=== PATIENT | female | born 1945 | race Caucasian/White ===

== ENCOUNTER 2020-10-21 16:41 | Emergency (ER) | payer MEDICARE ==
--- NOTE | 2020-10-21 16:49 | EDM.PDOC ---
ED HPI GENERAL MEDICAL PROBLEM - General Chief Complaint: Lower Extremity Injury/Pain Stated Complaint: RT FOOT PAIN Time Seen by Provider: 10/21/20 16:42 Source of Information: Reports: Patient History Limitations: Reports: No Limitations - History of Present Illness INITIAL COMMENTS - FREE TEXT/NARRATIVE: 75F PMHx CKD presents for atraumatic R foot pain. She states the pain started off in the foot as "tremors" and has progressed to include the right knee. She has been using a cane for stability. She rates pain a 2/10. She is more concerned with the lack of stability in the knee and ankle than the pain. She notes CKD and was on allopurinol for uremia but is no longer. She has a primary care physician that follows her renal function. She was also recently diagnosed with leukemia but has not yet started treatment. Right ankle Pain Score (Numeric/FACES): 2 - Related Data Allergies Allergy/AdvReac Type Severity Reaction Status Date / Time Latex, Natural Rubber Allergy Itching Verified 02/15/15 11:23 Penicillins Allergy Itching Verified 02/15/15 11:23 Sulfa (Sulfonamide Allergy Itching Verified 02/15/15 11:23 Antibiotics) Tetanus Vaccines and Toxoid Allergy Other Verified 02/15/15 11:23 [Tetanus Vaccines & Toxoid] Home Meds: Home Meds Allopurinol [Zyloprim] 100 mg PO BID 02/15/15 [History] Furosemide [Lasix] 20 mg PO DAILY 02/15/15 [History] Metoprolol Tartrate 100 mg PO BID 02/15/15 [History] amLODIPine [Norvasc] 7.5 mg PO DAILY 02/15/15 [History] Levofloxacin [Levaquin] 250 mg PO Q48H #4 tablet 02/16/15 [Rx] Past Medical History Other Genitourinary History: Has left arm fistula in case needs dialysis,going for repair of fistula Wednesday in [place]. Other Musculoskeletal History: left arm Other Hematologic History: takes PO B12 daily and. Vit D Other Oncologic History: right ovary removed. Other Dermatologic History: states has been itching badlly for 2 to 3 weeks. Review of Systems - Review of Systems Review Of Systems: Comprehensive ROS is negative, except as noted in HPI. ED EXAM, GENERAL - Physical Exam Exam: See Below Exam Limited By: No Limitations General Appearance: Alert, WD/WN, No Apparent Distress Throat/Mouth: Normal Voice, No Airway Compromise Head: Atraumatic, Normocephalic Neck: Normal Inspection Respiratory/Chest: No Respiratory Distress, Lungs Clear, Normal Breath Sounds, No Accessory Muscle Use Cardiovascular: Normal Peripheral Pulses, Regular Rate, Rhythm Extremities: Normal Inspection, Other (no calf swelling,erythema,warmth. ) Neurological: Alert, Normal Gait Psychiatric: Normal Affect, Normal Mood Skin Exam: Warm, Dry, Intact, Normal Color Course - Vital Signs Last Recorded V/S: Last Vital Signs Temp 97.6 F 10/21/20 17:02 Pulse 87 10/21/20 17:56 Resp 18 10/21/20 17:56 BP 138/66 10/21/20 17:56 Pulse Ox 96 10/21/20 17:56 - Orders/Labs/Meds Orders: Active Orders 24 hr Category Date Time Status Foot Comp Min 3V Rt [CR] Stat Exams 10/21/20 16:54 Taken Labs: Laboratory Tests 10/21/20 10/21/20 Range/Units 17:10 17:10 WBC 18.50 H (4.0-11.0) K/uL RBC 4.32 (4.30-5.90) M/uL Hgb 13.6 (12.0-16.0) g/dL Hct 41.1 (36.0-46.0) % MCV 95.1 (80.0-98.0) fL MCH 31.5 (27.0-32.0) pg MCHC 33.1 (31.0-37.0) g/dL RDW Std Deviation 51.9 (28.0-62.0) fl RDW Coeff of Garret 15 (11.0-15.0) % Plt Count 783 H (150-400) K/uL MPV 10.80 (7.40-12.00) fL Neut % (Auto) 81.8 H (48.0-80.0) % Lymph % (Auto) 7.1 L (16.0-40.0) % [place] % (Auto) 7.1 (0.0-15.0) % Eos % (Auto) 3.2 (0.0-7.0) % Baso % (Auto) 0.8 (0.0-1.5) % Neut # (Auto) 15.1 H (1.4-5.7) K/uL Lymph # (Auto) 1.3 (0.6-2.4) K/uL [place] # (Auto) 1.3 H (0.0-0.8) K/uL Eos # (Auto) 0.6 (0.0-0.7) K/uL Baso # (Auto) 0.2 H (0.0-0.1) K/uL Nucleated RBC % 0.0 /100WBC Nucleated RBCs # 0 K/uL Sodium 135 L (136-145) mmol/L Potassium 4.1 (3.5-5.1) mmol/L Chloride 97 L (98-107) mmol/L Carbon Dioxide 15.9 L (21.0-32.0) mmol/L BUN 81 H (7.0-18.0) mg/dL Creatinine 4.3 H (0.6-1.0) mg/dL Est Cr Clr Drug Dosing 9.06 mL/min Estimated GFR (MDRD) 10.0 ml/min Glucose 106 (74-106) mg/dL Calcium 10.1 (8.5-10.1) mg/dL Magnesium 2.5 H (1.8-2.4) mg/dL Meds: Medications Discontinued Medications Generic Name Dose Route Start Last Admin Trade Name Freq PRN Reason Stop Dose Admin Acetaminophen 1,000 mg 10/21/20 16:57 10/21/20 17:52 Tylenol Extra Strength PO 10/21/20 16:58 1,000 mg ONETIME ONE Administration Cyclobenzaprine HCl 5 mg 10/21/20 16:57 10/21/20 17:53 Flexeril PO 10/21/20 16:58 5 mg NOW STA Administration - Re-Assessments/Exams Free Text/Narrative Re-Assessment/Exam: 10/21/20 17:00 Will check basic labs, electrolytes. Will get imaging to assess for arthritis vs other. Will treat pain with tylenol/flexeril. 10/21/20 17:59 Patient with multiple lab abnormalities including elevated white blood cell count, thrombocytosis, elevated creatinine, normal potassium, hypomagnesemia. Although these lab results are concerning considering patient's leukemia history, there are no emergent findings that necessitate admission to the hospital. Patient and daughter were talked to extensively about the importance of follow-up with oncology. Patient's pain is likely secondary to her underlying leukemia. Although she does have chronic kidney disease, her creatinine is stable from last check in our computer system 6 years ago. Daughter also notes that 4.1 is a typical reading for patient's creatinine. No hyperkalemia to suggest acute kidney injury. Departure - Departure Time of Disposition: 18:01 Disposition: Home, Self-Care 01 Condition: Good Clinical Impression: Bone pain - Discharge Information Instructions: Muscle Strain, [id number] Referrals: Raghu Zavala MD [Primary Care Provider] - Forms: ED Department Discharge Additional Instructions: You need to follow-up with your oncologist regarding your abnormal lab results. I believe your pain is likely secondary to your underlying leukemia. You may need to be on chronic pain medication in order to alleviate the symptoms. In the meantime you can try Tylenol 1000 mg up to 4 times a day. The following information is given to patients seen in the emergency department who are being discharged to home. This information is to outline your options for follow-up care. We provide all patients seen in our emergency department with a follow-up referral. The need for follow-up, as well as the timing and circumstances, are variable depending upon the specifics of your emergency department visit. If you don't have a primary care physician on staff, we will provide you with a referral. We always advise you to contact your personal physician following an emergency department visit to inform them of the circumstance of the visit and for follow-up with them and/or the need for any referrals to a consulting specialist. The emergency department will also refer you to a specialist when appropriate. This referral assures that you have the opportunity for follow-up care with a specialist. All of these measure are taken in an effort to provide you with optimal care, which includes your follow-up. Under all circumstances we always encourage you to contact your private physician who remains a resource for coordinating your care. When calling for follow-up care, please make the office aware that this follow-up is from your recent emergency room visit. If for any reason you are refused follow-up, please contact the [facility] Emergency Department at and asked to speak to the emergency department charge nurse. Please follow up with your primary care physician. If you do not have a primary care physician, see below: [facility] [address] [place], [place] [id number] [facility] [address] [place] [address] [facility] [address] [place] [address] Sepsis Event Note (ED) - Focused Exam Vital Signs: Vital Signs Temp Pulse Resp BP Pulse Ox 10/21/20 17:56 87 18 138/66 96 10/21/20 17:25 84 17 120/64 96 10/21/20 17:02 97.6 F 94 17 113/61 98 - My Orders Last 24 Hours: My Active Orders 10/21/20 16:54 Foot Comp Min 3V Rt [CR] Stat - Assessment/Plan Last 24 Hours: My Active Orders 10/21/20 16:54 Foot Comp Min 3V Rt [CR] Stat
[2020-10-21] MEDS ORDERED: Cyclobenzaprine 5 MG Tab PO STA (16:57)
[2020-10-21] MEDS ORDERED: Acetaminophen 500 MG Tab PO ONE (16:57)
[2020-10-21 17:36] LABS: CARBON DIOXIDE,CO2 15.9 mmol/L (21.0-32.0); POTASSIUM,K 4.1 mmol/L (3.5-5.1)
--- NOTE | 2020-10-21 17:57 | CR ---
INDICATION: Atraumatic pain TECHNIQUE: Three views right knee COMPARISON: None FINDINGS: Bones: Alignment is normal. No fractures or bone lesions. Joint spaces: Degenerative changes medial patellofemoral compartment. Soft tissues: Unremarkable. IMPRESSION: Degenerative changes medial patellofemoral compartment Dictated by Isai Vallecillo MD @ Oct 21 2020 5:54PM Signed by Dr. Isai Vallecillo @ Oct 21 2020 5:55PM
[2020-10-21 17:59] VITALS: BP 138/66
--- NOTE | 2020-10-21 17:59 | CR ---
INDICATION: Atraumatic pain x weeks. TECHNIQUE: Right ankle 3 views. COMPARISON: None. FINDINGS: Bones: Alignment is normal. No fractures or bone lesions. Joint spaces: Unremarkable. Soft tissues: Unremarkable. IMPRESSION: Unremarkable right ankle. Dictated by: Isai Vallecillo MD @ 10/21/2020 17:58:42 (Electronically Signed)
--- NOTE | 2020-10-21 17:59 | CR ---
INDICATION: Atraumatic pain x weeks. TECHNIQUE: Right foot 3 views COMPARISON: None. FINDINGS: Bones: Alignment is normal. No fractures or bone lesions. Joint spaces: Unremarkable. Soft tissues: Unremarkable. IMPRESSION: Unremarkable right foot. Dictated by: Isai Vallecillo MD @ 10/21/2020 17:59:19 (Electronically Signed)
[2020-10-21 18:22] VITALS: PULSE 84
== END 2020-10-21 18:22 | disposition home or self-care (01) ==
LOC: MW.ED 16:41
DX: M89.8X7 Other specified disorders of bone, ankle and foot (principal); Z91.040 Latex allergy status; Z88.0 Allergy status to penicillin; Z88.2 Allergy status to sulfonamides; Z88.7 Allergy status to serum and vaccine; Z79.899 Other long term (current) drug therapy
CPT/HCPCS: 36415; 73562; 73610; 73630; 80048; 83735; 85025; 99283; A9270

== ENCOUNTER 2020-10-31 23:40 | Emergency (ER) | payer MEDICARE ==
--- NOTE | 2020-11-01 00:21 | EDM.PDOC ---
ED HPI GENERAL MEDICAL PROBLEM - General Chief Complaint: ENT Problem Stated Complaint: NOSE BLEED Time Seen by Provider: 10/31/20 23:50 - History of Present Illness INITIAL COMMENTS - FREE TEXT/NARRATIVE: HISTORY AND PHYSICAL: History of present illness: Is a 75-year-old female who is currently being worked up at the cancer center for an elevated WBC count as well as a thrombocytosis and was seen yesterday by their oncologist and is currently being evaluated who presents ER today with epistaxis that started approximately 1 hour prior to arrival. Patient reports that she has had no prior episodes of epistaxis similar to this in the past. Patient has any recent fevers, shakes, chills, nausea, vomiting, diarrhea, dysuria, frequency, urgency, chest pain, shortness of breath. Patient reports that she is not on any anticoagulant medications or aspirin. Patient reports that the only thing she is taking currently is acetaminophen for pain or discomfort. Patient denies any easy bruising or bleeding gums. Patient denies any history of DVT/PE. Patient denies any bleeding dyscrasias in the past. family reports the patient has still undiagnosed blood disorder that is being worked up. Patient has any recent trauma to her nose. Review of systems: As per history of present illness and below otherwise all systems reviewed and negative. Past medical history: As per history of present illness and as reviewed below otherwise noncontributory. Surgical history: As per history of present illness and as reviewed below otherwise noncontributory. Social history: No reported history of drug or alcohol abuse. Family history: As per history of present illness and as reviewed below otherwise noncontributory. Physical exam: This patient was seen and evaluated during the 2019 SARS-CoV-2 novel coronavirus pandemic period. Community viral transmission is ongoing at time of this encounter and the emergency department is operating under pandemic response procedures. Constitutional: Patient is oriented to person, place, and time. Appears well- developed and well-nourished. No distress. HEENT: Moist mucous membranes Head: Normocephalic and atraumatic Eyes: Right eye exhibits no discharge. Left eye exhibits no discharge. No scleral icterus Neck: Normal range of motion. No tracheal deviation present. Cardiovascular: Normal rate and regular rhythm. Pulmonary: Effort normal, no respiratory distress. Abdominal: No distention Musculoskeletal: Normal range of motion Neurologic: Alert and oriented to person, place and time. Skin: [place], warm and dry. Psychiatric: Normal mood and affect. Behavior is normal. Judgment and thought content normal. Nursing note and vital signs have been reviewed Patient's ER physical exam is significant for dried blood inside her left naris. No active bleeding at the time except for small amount of blood dripping out of her left naris. No evidence of trauma. Skin shows no petechiae or bruising. Nares were examined. Right nares are normal. Left nares have dried blood that was removed by patient blowing her nose. I was able to examine the nasal mucosa and no active bleeding vessel or clot was identified. Diagnostics: Patient had a CBC which revealed an elevated WBC count and platelet count which appears to be at baseline. Patient does have a history of renal dysfunction with a creatinine in the low 4 range. Patient's labs are within normal limits. Patient's creatinine is at baseline. Patient PT PTT are within normal limits. Therapeutics: Nasal balloon placed inside left nares and inflated with 2 cc of air. Patient tolerated procedure well Assessment and plan: 75-year-old female who is currently being evaluated for a blood dyscrasia who presents ER today secondary to epistaxis that started 1 hour prior to arrival. Patient's evaluation revealed minimal amount of bleeding at the time of arrival to the ED out of her left naris. I did try to interrogate her nares, patient did blow her nose but no active bleeding was initiated. Given her elevated platelet count and concern that she might have dysfunctional platelets, a nasal balloon was inserted and insufflated to obtain adequate pressure. Patient be discharged home with instructions to have the balloon removed in 2 to 3 days. Patient was placed on Keflex 500 mg twice a day to prevent sinus infection. Patient was encouraged to call her doctor to make an appointment to see him or return to the ER if unable to get an appointment. Reassessment at the time of disposition demonstrates that the patient is in no acute distress. The patient has remained stable throughout the entire ED visit and is without objective evidence for acute process requiring urgent intervention or hospitalization. The patient is stable for discharge, counseling is provided as documented above, discussed symptomatic treatment and specific conditions for return. I have spoken with the patient/caregiver and discussed todays findings, in addition to providing specific details for the plan of care. Questions are answered and there is agreement with the plan. Definitive disposition and diagnosis as appropriate pending reevaluation and review of above. - Related Data Allergies Allergy/AdvReac Type Severity Reaction Status Date / Time Latex, Natural Rubber Allergy Itching Verified 10/31/20 23:47 oxycodone Allergy Itching Verified 10/31/20 23:47 Penicillins Allergy Itching Verified 10/31/20 23:47 Sulfa (Sulfonamide Allergy Itching Verified 10/31/20 23:47 Antibiotics) Tetanus Vaccines and Toxoid Allergy Other Verified 10/31/20 23:47 [Tetanus Vaccines & Toxoid] Home Meds: Home Meds Allopurinol [Zyloprim] 100 mg PO BID 02/15/15 [History] Furosemide [Lasix] 20 mg PO DAILY 02/15/15 [History] Metoprolol Tartrate 100 mg PO BID 02/15/15 [History] amLODIPine [Norvasc] 7.5 mg PO DAILY 02/15/15 [History] Cyclobenzaprine [Flexeril] 5 mg PO Q6H PRN #30 tab 10/21/20 [Rx] cephALEXin [Keflex] 500 mg PO BID #6 cap 11/01/20 [Rx] Past Medical History Cardiovascular History: Reports: Hypertension Respiratory History: Reports: COPD Genitourinary History: Reports: Acute Renal Failure Other Genitourinary History: Has left arm fistula in case needs dialysis,going for repair of fistula Wednesday in [place]. Other Musculoskeletal History: left arm Other Hematologic History: takes PO B12 daily and. Vit D Oncologic (Cancer) History: Reports: Leukemia Other Oncologic History: right ovary removed. Other Dermatologic History: states has been itching badlly for 2 to 3 weeks. - Infectious Disease History Infectious Disease History: Reports: Chicken Pox, Measles, Mumps - Past Surgical History Female Surgical History: Reports: Hysterectomy Social & Family History - Family History Family Medical History: No Pertinent Family History - Tobacco Use Tobacco Use Status *Q: Current Every Day Tobacco User Years of Tobacco use: 35 Packs/Tins Daily: 1 - Recreational Drug Use Recreational Drug Use: No ED ROS GENERAL - Review of Systems Review Of Systems: See Below ED EXAM, GENERAL - Physical Exam Exam: See Below Course - Vital Signs Last Recorded V/S: Last Vital Signs Temp 98.3 F 10/31/20 23:48 Pulse Resp 18 10/31/20 23:48 BP 111/56 L 10/31/20 23:48 Pulse Ox - Orders/Labs/Meds Labs: Laboratory Tests 11/01/20 11/01/20 11/01/20 Range/Units 00:16 00:16 00:16 WBC 19.39 H (4.0-11.0) K/uL RBC 3.76 L (4.30-5.90) M/uL Hgb 11.7 L (12.0-16.0) g/dL Hct 35.5 L (36.0-46.0) % MCV 94.4 (80.0-98.0) fL MCH 31.1 (27.0-32.0) pg MCHC 33.0 (31.0-37.0) g/dL RDW Std Deviation 53.5 (28.0-62.0) fl RDW Coeff of Garret 16 H (11.0-15.0) % Plt Count 625 H (150-400) K/uL MPV 10.00 (7.40-12.00) fL Neut % (Auto) 84.5 H (48.0-80.0) % Lymph % (Auto) 3.6 L (16.0-40.0) % [place] % (Auto) 8.2 (0.0-15.0) % Eos % (Auto) 3.5 (0.0-7.0) % Baso % (Auto) 0.2 (0.0-1.5) % Neut # (Auto) 16.4 H (1.4-5.7) K/uL Lymph # (Auto) 0.7 (0.6-2.4) K/uL [place] # (Auto) 1.6 H (0.0-0.8) K/uL Eos # (Auto) 0.7 (0.0-0.7) K/uL Baso # (Auto) 0.0 (0.0-0.1) K/uL Nucleated RBC % 0.0 /100WBC Nucleated RBCs # 0 K/uL INR APTT 28.8 (18.6-31.3) SEC Sodium 132 L (136-145) mmol/L Potassium 3.9 (3.5-5.1) mmol/L Chloride 98 (98-107) mmol/L Carbon Dioxide 22.0 (21.0-32.0) mmol/L BUN 71 H (7.0-18.0) mg/dL Creatinine 3.4 H (0.6-1.0) mg/dL Est Cr Clr Drug Dosing 10.91 mL/min Estimated GFR (MDRD) 13.1 ml/min Glucose 88 (74-106) mg/dL Calcium 8.8 (8.5-10.1) mg/dL Total Bilirubin 0.2 (0.2-1.0) mg/dL AST 24 (15-37) IU/L ALT 18 (14-63) IU/L Alkaline Phosphatase 83 (46-116) U/L Total Protein 6.6 (6.4-8.2) g/dL Albumin 2.6 L (3.4-5.0) g/dL Globulin 4.0 (2.6-4.0) g/dL Albumin/Globulin Ratio 0.7 L (0.9-1.6) 11/01/20 Range/Units 00:16 WBC (4.0-11.0) K/uL RBC (4.30-5.90) M/uL Hgb (12.0-16.0) g/dL Hct (36.0-46.0) % MCV (80.0-98.0) fL MCH (27.0-32.0) pg MCHC (31.0-37.0) g/dL RDW Std Deviation (28.0-62.0) fl RDW Coeff of Garret (11.0-15.0) % Plt Count (150-400) K/uL MPV (7.40-12.00) fL Neut % (Auto) (48.0-80.0) % Lymph % (Auto) (16.0-40.0) % [place] % (Auto) (0.0-15.0) % Eos % (Auto) (0.0-7.0) % Baso % (Auto) (0.0-1.5) % Neut # (Auto) (1.4-5.7) K/uL Lymph # (Auto) (0.6-2.4) K/uL [place] # (Auto) (0.0-0.8) K/uL Eos # (Auto) (0.0-0.7) K/uL Baso # (Auto) (0.0-0.1) K/uL Nucleated RBC % /100WBC Nucleated RBCs # K/uL INR 1.02 APTT (18.6-31.3) SEC Sodium (136-145) mmol/L Potassium (3.5-5.1) mmol/L Chloride (98-107) mmol/L Carbon Dioxide (21.0-32.0) mmol/L BUN (7.0-18.0) mg/dL Creatinine (0.6-1.0) mg/dL Est Cr Clr Drug Dosing mL/min Estimated GFR (MDRD) ml/min Glucose (74-106) mg/dL Calcium (8.5-10.1) mg/dL Total Bilirubin (0.2-1.0) mg/dL AST (15-37) IU/L ALT (14-63) IU/L Alkaline Phosphatase (46-116) U/L Total Protein (6.4-8.2) g/dL Albumin (3.4-5.0) g/dL Globulin (2.6-4.0) g/dL Albumin/Globulin Ratio (0.9-1.6) Departure - Departure Time of Disposition: 00:57 Disposition: Home, Self-Care 01 Condition: Good Clinical Impression: Epistaxis, Thrombocytosis Leukocytosis Qualifiers: Leukocytosis type: other Qualified Code(s): D72.828 - Other elevated white blood cell count Chronic renal failure Qualifiers: Chronic kidney disease stage: unspecified stage Qualified Code(s): N18.9 - Chronic kidney disease, unspecified - Discharge Information Instructions: Nosebleed, Adult Referrals: Raghu Zavala MD [Primary Care Provider] - Forms: ED Department Discharge Additional Instructions: You have been seen and evaluated in the ER today secondary to bleeding of your left nare. Your blood tests are all at baseline without any evidence of significant blood loss. Please continue following up with your oncologist so they can determine the cause of your abnormal WBC count and platelet count. A nasal balloon was inserted into your left naris and should stay there for 2 to 3 days. You will be started on Keflex 500 mg twice a day for 3 days to prevent sinus infections from developing. Please make an appointment to see your doctor or return here to the ER in 2 to 3 days to have the packing removed. The following information is given to patients seen in the emergency department who are being discharged to home. This information is to outline your options for follow-up care. We provide all patients seen in our emergency department with a follow-up referral. The need for follow-up, as well as the timing and circumstances, are variable depending upon the specifics of your emergency department visit. If you don't have a primary care physician on staff, we will provide you with a referral. We always advise you to contact your personal physician following an emergency department visit to inform them of the circumstance of the visit and for follow-up with them and/or the need for any referrals to a consulting specialist. The emergency department will also refer you to a specialist when appropriate. This referral assures that you have the opportunity for follow-up care with a specialist. All of these measure are taken in an effort to provide you with optimal care, which includes your follow-up. Under all circumstances we always encourage you to contact your private physician who remains a resource for coordinating your care. When calling for follow-up care, please make the office aware that this follow-up is from your recent emergency room visit. If for any reason you are refused follow-up, please contact the [facility] Emergency Department at and asked to speak to the emergency department charge nurse. [facility] [address] [place] [address] [id number] [address] [address] Sepsis Event Note (ED) - Evaluation Sepsis Screening Result: No Definite Risk - Focused Exam Vital Signs: Vital Signs Temp Resp BP 10/31/20 23:48 98.3 F 18 111/56 L
[2020-11-01 00:42] LABS: POTASSIUM,K 3.9 mmol/L (3.5-5.1)
[2020-11-01] MEDS ORDERED: Cephalexin 500 MG Cap PO ONE (00:59)
[2020-11-01 01:11] VITALS: BP 125/65; PULSE 102
== END 2020-11-01 01:12 | disposition home or self-care (01) ==
LOC: MW.ED 23:40
DX: D72.828 Other elevated white blood cell count (principal); R04.0 Epistaxis; D47.3 Essential (hemorrhagic) thrombocythemia; I12.9 Hypertensive chronic kidney disease with stage 1 through stage 4 chronic kidney disease, or unspecified chronic kidney disease; N18.9 Chronic kidney disease, unspecified; J44.9 Chronic obstructive pulmonary disease, unspecified; Z91.040 Latex allergy status; Z88.5 Allergy status to narcotic agent; Z88.2 Allergy status to sulfonamides; Z88.7 Allergy status to serum and vaccine; Z79.899 Other long term (current) drug therapy; Z72.0 Tobacco use; Z88.0 Allergy status to penicillin
CPT/HCPCS: 30903; 36415; 80053; 85025; 85610; 85730; 99283; A9270; 30901

== ENCOUNTER 2021-03-26 18:39 | Emergency (ER) | payer MEDICARE ==
--- NOTE | 2021-03-26 18:54 | PCM.EKG ---
#1 Interpretation EKG Date: 03/26/21 Time: 18:50 Rhythm: Other (sinus tachy) Rate (Beats/Min): 105 ST-T: Normal
[2021-03-26] MEDS ORDERED: Sodium Chloride 0.9% 2.5 ML Syringe FLUSH PRN (19:11)
[2021-03-26] MEDS ORDERED: Sodium Chloride 0.9% 10 ML Syringe FLUSH PRN (19:11)
[2021-03-26] MEDS ORDERED: Labetalol 100 MG/20 ML MDV IVPUSH ONE (19:13)
[2021-03-26 19:34] LABS: CARBON DIOXIDE,CO2 23.9 mmol/L (21.0-32.0)
--- NOTE | 2021-03-26 19:46 | CR ---
Indication: Hypertension Comparison: Two-view chest February 12, 2021 Technique: Single AP view chest Findings: There is hyperinflation and chronic interstitial change. There is mild pulmonary vascular congestion. There is no dense consolidation, effusion or pneumothorax. The cardiac silhouette is stable. The bony thorax is grossly intact. Impression: Hyperinflation and chronic interstitial changes with mild pulmonary vascular congestion. Dictated by Clovis Brown MD @ 03/26/2021 7:45:[address] Clovis Brown @ Mar 26 2021 7:45PM
[2021-03-26 21:19] VITALS: BP 135/70; PULSE 98
--- NOTE | 2021-03-26 21:19 | EDM.PDOC ---
ED HPI GENERAL MEDICAL PROBLEM - General Chief Complaint: General Stated Complaint: HOME HEALTH REFERRAL Time Seen by Provider: 03/26/21 19:05 - History of Present Illness INITIAL COMMENTS - FREE TEXT/NARRATIVE: HISTORY AND PHYSICAL: History of present illness: This is a 76-year-old female with a history significant for hypertension, chronic renal failure not yet requiring dialysis, hypertension, peripheral artery disease on Plavix, who presents ER today secondary to a elevated blood pressure was noted by the home health nurse. Patient ports that she has a headache but is not unusual for her and she usually gets 1 when she does not drink her coffee. Patient reports that recently her doctor cut her antihypertensive medication, metoprolol from 1 pill twice a day to half a pill twice a day and her blood pressures been elevated since. Patient denies any other symptomatology. Patient has any recent fevers, shakes, chills, nausea, vomiting, diarrhea, dysuria, frequency, urgency, chest pain, shortness of breath, abdominal pain, double vision, blurred vision. Review of systems: As per history of present illness and below otherwise all systems reviewed and negative. Past medical history: As per history of present illness and as reviewed below otherwise noncontributory. Surgical history: As per history of present illness and as reviewed below otherwise noncontributory. Social history: No reported history of drug abuse. Family history: As per history of present illness and as reviewed below otherwise noncontributory. Physical exam: HEENT: Atraumatic, normocephalic, pupils reactive, negative for conjunctival pallor or scleral icterus, mucous membranes moist, throat clear, neck supple, nontender, trachea midline. Lungs: Clear to auscultation, breath sounds equal bilaterally, chest nontender. Heart: S1S2, regular, negative for clicks, rubs, or JVD. Abdomen: Soft, nondistended, nontender. Negative for masses or hepatosplenomegaly. Negative for costovertebral tenderness. Pelvis: Stable nontender. Genitourinary: Deferred. Rectal: Deferred. Extremities: Atraumatic, negative for cords or calf pain. Neurovascular unremarkable. Neuro: Awake, alert, oriented. Cranial nerves II through XII unremarkable. Cerebellum unremarkable. Motor and sensory unremarkable throughout. Exam nonfocal. Diagnostics: CBC, CMP all patient's baseline Chest Xray: Normal cardiac silhouette No infiltrates or effusions identified. No PTX No evidence of acute bony fracture. As interpreted by ER MD: Colton EKG: As interpreted by ER physician: Colton: Nonspecific ST-T wave abnormalities Normal axis No evidence of ST elevation KS Normal sinus rhythm heart rate of 105 Therapeutics: Labetalol 20 mg IV Assessment and plan: 76-year-old female with a history significant for hypertension who presents ER today secondary to elevated BP. Patient's physical exam is unremarkable as well the review of systems. Patient appears to be asymptomatic. Patient's antihypertensive medications were cut in half approximately 1 to 2 weeks ago and ever since then her blood pressure has been elevated. I have instructed the patient to restart her prior dose of her metoprolol and take a full tablet twice a day instead of half a tablet twice a day and follow-up with her doctor for reevaluation of her hypertension. Reassessment at the time of disposition demonstrates that the patient is in no acute distress. The patient has remained stable throughout the entire ED visit and is without objective evidence for acute process requiring urgent intervention or hospitalization. The patient is stable for discharge, counseling is provided as documented above, discussed symptomatic treatment and specific conditions for return. I have spoken with the patient/caregiver and discussed todays findings, in addition to providing specific details for the plan of care. Questions are answered and there is agreement with the plan. Definitive disposition and diagnosis as appropriate pending reevaluation and review of above. Head Pain Score (Numeric/FACES): 5 - Related Data Allergies Allergy/AdvReac Type Severity Reaction Status Date / Time Latex, Natural Rubber Allergy Itching Verified 03/26/21 18:45 oxycodone Allergy Itching Verified 03/26/21 18:45 Penicillins Allergy Itching Verified 03/26/21 18:45 Sulfa (Sulfonamide Allergy Itching Verified 03/26/21 18:45 Antibiotics) Tetanus Vaccines and Toxoid Allergy Other Verified 03/26/21 18:45 [Tetanus Vaccines & Toxoid] Home Meds: Home Meds Aspirin 81 mg PO DAILY 03/26/21 [History] Cholecalciferol (Vitamin D3) [Vitamin D] 1 tab PO DAILY 03/26/21 [History] Clopidogrel Bisulfate [Plavix] 75 mg PO DAILY 03/26/21 [History] Ferrous Sulfate, Dried [Iron] 1 tab PO DAILY 03/26/21 [History] Furosemide [Lasix] 40 mg PO DAILY 03/26/21 [History] Hydroxyurea [Droxia] 200 mg PO DAILY 03/26/21 [History] atorvaSTATin [Lipitor] 40 mg PO DAILY 03/26/21 [History] Past Medical History Cardiovascular History: Reports: Hypertension Respiratory History: Reports: COPD Genitourinary History: Reports: Acute Renal Failure Other Genitourinary History: Supposed to start dialysis. has a fistula placed to the left arm. Other Musculoskeletal History: left arm Other Hematologic History: takes PO B12 daily and. Vit D Oncologic (Cancer) History: Reports: Leukemia Other Oncologic History: right ovary removed. Other Dermatologic History: states has been itching badlly for 2 to 3 weeks. - Infectious Disease History Infectious Disease History: Reports: Chicken Pox, Measles, Mumps - Past Surgical History Female Surgical History: Reports: Hysterectomy Social & Family History - Family History Family Medical History: No Pertinent Family History - Tobacco Use Tobacco Use Status *Q: Never Tobacco User - Recreational Drug Use Recreational Drug Use: No ED ROS GENERAL - Review of Systems Review Of Systems: See Below ED EXAM, GENERAL - Physical Exam Exam: See Below Course - Vital Signs Last Recorded V/S: Last Vital Signs Temp 98.2 F 03/26/21 18:45 Pulse 104 H 03/26/21 18:45 Resp 18 03/26/21 18:45 BP 119/98 H 03/26/21 18:45 Pulse Ox 95 03/26/21 18:45 - Orders/Labs/Meds Orders: Active Orders 24 hr Category Date Time Status Sodium Chloride 0.9% [Saline Flush] Med 03/26/21 19:11 Active 10 ml FLUSH ASDIRECTED PRN Sodium Chloride 0.9% [Saline Flush] Med 03/26/21 19:11 Active 2.5 ml FLUSH ASDIRECTED PRN Saline Lock Insert [OM.PC] Stat Oth 03/26/21 19:12 Ordered Medication Orders Sodium Chloride (Sodium Chloride 0.9% 10 Ml Syringe) 10 ml FLUSH ASDIRECTED PRN PRN Reason: Keep Vein Open Sodium Chloride (Sodium Chloride 0.9% 2.5 Ml Syringe) 2.5 ml FLUSH ASDIRECTED PRN PRN Reason: Keep Vein Open Labs: Laboratory Tests 03/26/21 03/26/21 Range/Units 18:51 18:51 WBC 16.14 H (4.0-11.0) K/uL RBC 3.81 L (4.30-5.90) M/uL Hgb 12.2 (12.0-16.0) g/dL Hct 37.1 (36.0-46.0) % MCV 97.4 (80.0-98.0) fL MCH 32.0 (27.0-32.0) pg MCHC 32.9 (31.0-37.0) g/dL RDW Std Deviation 61.4 (28.0-62.0) fl RDW Coeff of Garret 17 H (11.0-15.0) % Plt Count 745 H (150-400) K/uL MPV 9.60 (7.40-12.00) fL Neut % (Auto) 70.6 (48.0-80.0) % Lymph % (Auto) 12.6 L (16.0-40.0) % [place] % (Auto) 9.7 (0.0-15.0) % Eos % (Auto) 6.2 (0.0-7.0) % Baso % (Auto) 0.9 (0.0-1.5) % Neut # (Auto) 11.4 H (1.4-5.7) K/uL Lymph # (Auto) 2.0 (0.6-2.4) K/uL [place] # (Auto) 1.6 H (0.0-0.8) K/uL Eos # (Auto) 1.0 H (0.0-0.7) K/uL Baso # (Auto) 0.1 (0.0-0.1) K/uL Nucleated RBC % 0.0 /100WBC Nucleated RBCs # 0 K/uL Sodium 134 L (136-145) mmol/L Potassium 5.0 (3.5-5.1) mmol/L Chloride 97 L (98-107) mmol/L Carbon Dioxide 23.9 (21.0-32.0) mmol/L BUN 73 H (7.0-18.0) mg/dL Creatinine 4.0 H (0.6-1.0) mg/dL Est Cr Clr Drug Dosing 9.13 mL/min Estimated GFR (MDRD) 10.8 ml/min Glucose 112 H (74-106) mg/dL Calcium 11.0 H (8.5-10.1) mg/dL Total Bilirubin 0.3 (0.2-1.0) mg/dL AST 19 (15-37) IU/L ALT 17 (14-63) IU/L Alkaline Phosphatase 121 H (46-116) U/L Total Protein 7.3 (6.4-8.2) g/dL Albumin 4.1 (3.4-5.0) g/dL Globulin 3.2 (2.6-4.0) g/dL Albumin/Globulin Ratio 1.3 (0.9-1.6) Meds: Medications Generic Name Dose Route Start Last Admin Trade Name Freq PRN Reason Stop Dose Admin Sodium Chloride 10 ml 03/26/21 19:11 Sodium Chloride 0.9% 10 Ml Syringe FLUSH ASDIRECTED PRN Keep Vein Open Sodium Chloride 2.5 ml 03/26/21 19:11 Sodium Chloride 0.9% 2.5 Ml Syringe FLUSH ASDIRECTED PRN Keep Vein Open Discontinued Medications Generic Name Dose Route Start Last Admin Trade Name Freq PRN Reason Stop Dose Admin Labetalol HCl 20 mg 03/26/21 19:13 03/26/21 20:42 Labetalol 100 Mg/20 Ml Mdv IVPUSH 03/26/21 19:14 20 mg ONETIME ONE Administration Protocol Departure - Departure Time of Disposition: 21:19 Disposition: Home, Self-Care 01 Condition: Good Clinical Impression: Hypertension - Discharge Information Instructions: Hypertension, Adult, [id number] Referrals: Raghu Zavala MD [Primary Care Provider] - Additional Instructions: You were seen and evaluated in ER today secondary to elevated blood pressure. You were given labetalol 20 mg in the ED with significant improvement your blood pressure. Please increase your metoprolol to 1 full tablet twice a day as you have been doing prior until you are able to follow-up with your family doctor to reassess your antihypertensive medications. The following information is given to patients seen in the emergency department who are being discharged to home. This information is to outline your options for follow-up care. We provide all patients seen in our emergency department with a follow-up referral. The need for follow-up, as well as the timing and circumstances, are variable depending upon the specifics of your emergency department visit. If you don't have a primary care physician on staff, we will provide you with a referral. We always advise you to contact your personal physician following an emergency department visit to inform them of the circumstance of the visit and for follow-up with them and/or the need for any referrals to a consulting specialist. The emergency department will also refer you to a specialist when appropriate. This referral assures that you have the opportunity for follow-up care with a specialist. All of these measure are taken in an effort to provide you with optimal care, which includes your follow-up. Under all circumstances we always encourage you to contact your private physician who remains a resource for coordinating your care. When calling for follow-up care, please make the office aware that this follow-up is from your recent emergency room visit. If for any reason you are refused follow-up, please contact the [facility] Emergency Department at and asked to speak to the emergency department charge nurse. [facility] [address] [place] [address] [facility] [address] [place] [address] Sepsis Event Note (ED) - Evaluation Sepsis Screening Result: No Definite Risk - Focused Exam Vital Signs: Vital Signs Temp Pulse Resp BP Pulse Ox 03/26/21 18:45 98.2 F 104 H 18 119/98 H 95 - My Orders Last 24 Hours: My Active Orders 03/26/21 19:11 Sodium Chloride 0.9% [Saline Flush] 10 ml FLUSH ASDIRECTED PRN Sodium Chloride 0.9% [Saline Flush] 2.5 ml FLUSH ASDIRECTED PRN 03/26/21 19:12 Saline Lock Insert [OM.PC] Stat - Assessment/Plan Last 24 Hours: My Active Orders 03/26/21 19:11 Sodium Chloride 0.9% [Saline Flush] 10 ml FLUSH ASDIRECTED PRN Sodium Chloride 0.9% [Saline Flush] 2.5 ml FLUSH ASDIRECTED PRN 03/26/21 19:12 Saline Lock Insert [OM.PC] Stat
== END 2021-03-26 21:30 | disposition home or self-care (01) ==
LOC: MW.ED 18:39
DX: I10 Essential (primary) hypertension (principal); J44.9 Chronic obstructive pulmonary disease, unspecified; Z88.0 Allergy status to penicillin; Z88.1 Allergy status to other antibiotic agents; Z91.040 Latex allergy status; Z88.2 Allergy status to sulfonamides; Z88.7 Allergy status to serum and vaccine; Z79.82 Long term (current) use of aspirin; Z79.899 Other long term (current) drug therapy
CPT/HCPCS: 36415; 71045; 80053; 85025; 93005; 96374; 99284; J3490

== ENCOUNTER 2021-05-05 19:07 | Observation (INO) | payer MEDICARE ==
[2021-05-05] MEDS ORDERED: methylPREDNISolone Sodium Succinate 125 MG/2 ML SDV IVPUSH ONE (19:12)
[2021-05-05] MEDS ORDERED: Albuterol 8 GM Inhaler INH ONE (19:17)
--- NOTE | 2021-05-05 19:23 | EDM.PDOC ---
ED HPI GENERAL MEDICAL PROBLEM - General Stated Complaint: DIFFICULTY BREATHING Time Seen by Provider: 05/05/21 19:11 - History of Present Illness INITIAL COMMENTS - FREE TEXT/NARRATIVE: 76-year-old female who reports a history of COPD not on home O2 who is presenting with shortness of breath and cough that she is is worsened over the last 24 hours. For EMS room air oxygenation was in the upper 70s. She arrives on nonrebreather with increased work of breathing. Due to clinical condition further history is unavailable at this time. - Related Data Allergies Allergy/AdvReac Type Severity Reaction Status Date / Time Latex, Natural Rubber Allergy Itching Verified 05/05/21 19:14 oxycodone Allergy Itching Verified 05/05/21 19:14 Penicillins Allergy Itching Verified 05/05/21 19:14 Sulfa (Sulfonamide Allergy Itching Verified 05/05/21 19:14 Antibiotics) Tetanus Vaccines and Toxoid Allergy Other Verified 05/05/21 19:14 [Tetanus Vaccines & Toxoid] Home Meds: Home Meds Aspirin 81 mg PO DAILY 03/26/21 [History] Cholecalciferol (Vitamin D3) [Vitamin D] 1 tab PO DAILY 03/26/21 [History] Clopidogrel Bisulfate [Plavix] 75 mg PO DAILY 03/26/21 [History] Ferrous Sulfate, Dried [Iron] 1 tab PO DAILY 03/26/21 [History] Furosemide [Lasix] 40 mg PO DAILY 03/26/21 [History] Hydroxyurea [Droxia] 200 mg PO DAILY 03/26/21 [History] atorvaSTATin [Lipitor] 40 mg PO DAILY 03/26/21 [History] Past Medical History Cardiovascular History: Reports: Hypertension Respiratory History: Reports: COPD Genitourinary History: Reports: Acute Renal Failure Other Genitourinary History: Supposed to start dialysis. has a fistula placed to the left arm. Other Musculoskeletal History: left arm Other Hematologic History: takes PO B12 daily and. Vit D Oncologic (Cancer) History: Reports: Leukemia Other Oncologic History: right ovary removed. Other Dermatologic History: states has been itching badlly for 2 to 3 weeks. - Infectious Disease History Infectious Disease History: Reports: Chicken Pox, Measles, Mumps - Past Surgical History Female Surgical History: Reports: Hysterectomy Social & Family History - Family History Family Medical History: No Pertinent Family History ED ROS GENERAL - Review of Systems Review Of Systems: See Below Free Text/Narrative/Comment: General: No fever. Neck: No neck stiffness. Respiratory: Per HPI Cardiac: No chest pain. Gastrointestinal: No nausea, vomiting or abdominal pain. ED EXAM, GENERAL - Physical Exam Exam: See Below Free Text/Narrative:: General Appearance: Moderate respiratory distress Skin: No rash HEENT: Normocephalic/atraumatic, sclera anicteric, mucous membranes moist Neck: Normal range of motion Chest and Lungs: Diffusely diminished breath sounds with increased work of breathing and some tachypnea no clear crackles or wheezing on initial assessment Cardiovascular: Regular rate and rhythm, no murmur Abdomen: Soft, non-tender Back: Normal Musculoskeletal: No edema or tenderness Neurologic: Awake, alert, no obvious deficits, moving all extremities Psychiatric: Appropriate, cooperative #1 Interpretation EKG Date: 05/05/21 Time: 19:30 EKG Interpretation Comments: Sinus tachycardia rate of 105 slight right axis deviation unremarkable intervals no acute ischemia Course - Vital Signs Last Recorded V/S: Last Vital Signs Temp 97.0 F 05/05/21 19:07 Pulse 113 H 05/06/21 01:00 Resp 20 05/05/21 22:03 BP 140/61 05/06/21 01:00 Pulse Ox 96 05/06/21 01:00 - Orders/Labs/Meds Orders: Active Orders 24 hr Category Date Time Status CULTURE BLOOD [BC] Stat Lab 05/05/21 19:18 Received CULTURE BLOOD [BC] Stat Lab 05/05/21 20:05 Received Azithromycin [Zithromax] 500 mg Med 05/05/21 20:00 Active Sodium Chloride 0.9% [Normal Saline (AdvBag)] 250 ml IV ONETIME Dextrose 50% in Water Med 05/05/21 20:10 Active 50 ml IVPUSH ASDIRECTED PRN Glucagon,Human Recombinant [GlucaGen] Med 05/05/21 20:10 Active 1 mg IM ASDIRECTED PRN Sodium Chloride 0.9% [Saline Flush] Med 05/05/21 19:11 Active 10 ml FLUSH ASDIRECTED PRN Sodium Chloride 0.9% [Saline Flush] Med 05/05/21 19:52 Active 10 ml FLUSH ASDIRECTED PRN Sodium Chloride 0.9% [Saline Flush] Med 05/05/21 19:11 Active 2.5 ml FLUSH ASDIRECTED PRN Sodium Chloride 0.9% [Saline Flush] Med 05/05/21 19:52 Active 2.5 ml FLUSH ASDIRECTED PRN Blood Culture x2 Reflex Set [OM.PC] Stat Ot 05/05/21 19:52 Ordered Saline Lock Insert [OM.PC] Stat Ot 05/05/21 19:11 Ordered Saline Lock Insert [OM.PC] Stat Ot 05/05/21 19:52 Ordered Severe Sepsis Onset Time [OM.PC] Stat Ot 05/05/21 19:52 Ordered Code Status [Resuscitation Status] Stat Resus Stat 05/05/21 20:12 Ordered Medication Orders Dextrose/Water (50% Dextrose In Water 50 Ml Syringe) 50 ml IVPUSH ASDIRECTED PRN PRN Reason: Hypoglycemia Glucagon (Glucagon,Human Recombinant 1 Mg Vial) 1 mg IM ASDIRECTED PRN PRN Reason: Hypoglycemia Azithromycin 500 mg/ Sodium (Chloride) 250 mls @ 250 mls/hr IV ONETIME SHRUTHI Last Admin: 05/05/21 21:25 Dose: 250 mls/hr Documented by: WALT Sodium Chloride (Sodium Chloride 0.9% 10 Ml Syringe) 10 ml FLUSH ASDIRECTED PRN PRN Reason: Keep Vein Open Last Admin: 05/05/21 20:32 Dose: 10 ml Documented by: Admin: 05/05/21 19:24 Dose: 10 ml Documented by: HILARIO Sodium Chloride (Sodium Chloride 0.9% 2.5 Ml Syringe) 2.5 ml FLUSH ASDIRECTED PRN PRN Reason: Keep Vein Open Last Admin: 05/05/21 20:32 Dose: 2.5 ml Documented by: Admin: 05/05/21 19:25 Dose: 2.5 ml Documented by: HILARIO Sodium Chloride (Sodium Chloride 0.9% 10 Ml Syringe) 10 ml FLUSH ASDIRECTED PRN PRN Reason: Keep Vein Open Last Admin: 05/05/21 20:32 Dose: 10 ml Documented by: WALT Sodium Chloride (Sodium Chloride 0.9% 2.5 Ml Syringe) 2.5 ml FLUSH ASDIRECTED PRN PRN Reason: Keep Vein Open Last Admin: 05/05/21 20:33 Dose: 2.5 ml Documented by: WALT Labs: Laboratory Tests 05/05/21 05/05/21 05/05/21 Range/Units 19:18 19:18 19:18 WBC 29.78 H (4.0-11.0) K/uL RBC 3.37 L (4.30-5.90) M/uL Hgb 10.5 L (12.0-16.0) g/dL Hct 33.2 L (36.0-46.0) % MCV 98.5 H (80.0-98.0) fL MCH 31.2 (27.0-32.0) pg MCHC 31.6 (31.0-37.0) g/dL RDW Std Deviation 54.9 (28.0-62.0) fl RDW Coeff of Garret 15 (11.0-15.0) % Plt Count 1181 H (150-400) K/uL MPV 10.20 (7.40-12.00) fL Neut % (Auto) 76.8 (48.0-80.0) % Lymph % (Auto) 12.2 L (16.0-40.0) % Mcmullen % (Auto) 6.9 (0.0-15.0) % Eos % (Auto) 3.5 (0.0-7.0) % Baso % (Auto) 0.6 (0.0-1.5) % Neut # (Auto) 22.9 H (1.4-5.7) K/uL Lymph # (Auto) 3.6 H (0.6-2.4) K/uL Mcmullen # (Auto) 2.0 H (0.0-0.8) K/uL Eos # (Auto) 1.1 H (0.0-0.7) K/uL Baso # (Auto) 0.2 H (0.0-0.1) K/uL Nucleated RBC % 0.0 /100WBC Nucleated RBCs # 0 K/uL ABG pH (7.35-7.45) ABG pCO2 (35-45) mmHG ABG pO2 (80-105) mmHG ABG HCO3 (22-26) mEq/L ABG Total CO2 (23-27) mmol/L ABG Base Excess (-2.0-3.0) Sodium 135 L (136-145) mmol/L Potassium 6.2 H (3.5-5.1) mmol/L Chloride 99 (98-107) mmol/L Carbon Dioxide 21.5 (21.0-32.0) mmol/L BUN 94 H (7.0-18.0) mg/dL Creatinine 6.6 H (0.6-1.0) mg/dL Est Cr Clr Drug Dosing TNP Estimated GFR (MDRD) 6.1 ml/min Glucose 155 H (74-106) mg/dL Lactic Acid (0.4-2.0) mmol/L Calcium 8.6 (8.5-10.1) mg/dL Total Bilirubin 0.3 (0.2-1.0) mg/dL AST 15 (15-37) IU/L ALT 13 L (14-63) IU/L Alkaline Phosphatase 131 H (46-116) U/L Troponin I < 0.050 (0.000-0.056) ng/mL B-Natriuretic Peptide 889 H (<100) PG/ML Total Protein 7.0 (6.4-8.2) g/dL Albumin 3.2 L (3.4-5.0) g/dL Globulin 3.8 (2.6-4.0) g/dL Albumin/Globulin Ratio 0.8 L (0.9-1.6) SARS-CoV-2 RNA (MARIVEL) (NEGATIVE) 05/05/21 05/05/21 05/05/21 Range/Units 19:18 19:25 19:30 WBC (4.0-11.0) K/uL RBC (4.30-5.90) M/uL Hgb (12.0-16.0) g/dL Hct (36.0-46.0) % MCV (80.0-98.0) fL MCH (27.0-32.0) pg MCHC (31.0-37.0) g/dL RDW Std Deviation (28.0-62.0) fl RDW Coeff of Garret (11.0-15.0) % Plt Count (150-400) K/uL MPV (7.40-12.00) fL Neut % (Auto) (48.0-80.0) % Lymph % (Auto) (16.0-40.0) % Mcmullen % (Auto) (0.0-15.0) % Eos % (Auto) (0.0-7.0) % Baso % (Auto) (0.0-1.5) % Neut # (Auto) (1.4-5.7) K/uL Lymph # (Auto) (0.6-2.4) K/uL Mcmullen # (Auto) (0.0-0.8) K/uL Eos # (Auto) (0.0-0.7) K/uL Baso # (Auto) (0.0-0.1) K/uL Nucleated RBC % /100WBC Nucleated RBCs # K/uL ABG pH 7.27 L (7.35-7.45) ABG pCO2 43 (35-45) mmHG ABG pO2 47 L (80-105) mmHG ABG HCO3 20 L (22-26) mEq/L ABG Total CO2 21 L (23-27) mmol/L ABG Base Excess -7.0 L (-2.0-3.0) Sodium (136-145) mmol/L Potassium (3.5-5.1) mmol/L Chloride (98-107) mmol/L Carbon Dioxide (21.0-32.0) mmol/L BUN (7.0-18.0) mg/dL Creatinine (0.6-1.0) mg/dL Est Cr Clr Drug Dosing Estimated GFR (MDRD) ml/min Glucose (74-106) mg/dL Lactic Acid 1.2 (0.4-2.0) mmol/L Calcium (8.5-10.1) mg/dL Total Bilirubin (0.2-1.0) mg/dL AST (15-37) IU/L ALT (14-63) IU/L Alkaline Phosphatase (46-116) U/L Troponin I (0.000-0.056) ng/mL B-Natriuretic Peptide (<100) PG/ML Total Protein (6.4-8.2) g/dL Albumin (3.4-5.0) g/dL Globulin (2.6-4.0) g/dL Albumin/Globulin Ratio (0.9-1.6) SARS-CoV-2 RNA (MARIVEL) NEGATIVE (NEGATIVE) 05/05/21 Range/Units 21:47 WBC (4.0-11.0) K/uL RBC (4.30-5.90) M/uL Hgb (12.0-16.0) g/dL Hct (36.0-46.0) % MCV (80.0-98.0) fL MCH (27.0-32.0) pg MCHC (31.0-37.0) g/dL RDW Std Deviation (28.0-62.0) fl RDW Coeff of Garret (11.0-15.0) % Plt Count (150-400) K/uL MPV (7.40-12.00) fL Neut % (Auto) (48.0-80.0) % Lymph % (Auto) (16.0-40.0) % Mcmullen % (Auto) (0.0-15.0) % Eos % (Auto) (0.0-7.0) % Baso % (Auto) (0.0-1.5) % Neut # (Auto) (1.4-5.7) K/uL Lymph # (Auto) (0.6-2.4) K/uL Mcmullen # (Auto) (0.0-0.8) K/uL Eos # (Auto) (0.0-0.7) K/uL Baso # (Auto) (0.0-0.1) K/uL Nucleated RBC % /100WBC Nucleated RBCs # K/uL ABG pH (7.35-7.45) ABG pCO2 (35-45) mmHG ABG pO2 (80-105) mmHG ABG HCO3 (22-26) mEq/L ABG Total CO2 (23-27) mmol/L ABG Base Excess (-2.0-3.0) Sodium 136 (136-145) mmol/L Potassium 5.6 H (3.5-5.1) mmol/L Chloride 100 (98-107) mmol/L Carbon Dioxide 23.2 (21.0-32.0) mmol/L BUN 93 H (7.0-18.0) mg/dL Creatinine 6.5 H (0.6-1.0) mg/dL Est Cr Clr Drug Dosing TNP Estimated GFR (MDRD) 6.2 ml/min Glucose 155 H (74-106) mg/dL Lactic Acid (0.4-2.0) mmol/L Calcium 8.2 L (8.5-10.1) mg/dL Total Bilirubin (0.2-1.0) mg/dL AST (15-37) IU/L ALT (14-63) IU/L Alkaline Phosphatase (46-116) U/L Troponin I (0.000-0.056) ng/mL B-Natriuretic Peptide (<100) PG/ML Total Protein (6.4-8.2) g/dL Albumin (3.4-5.0) g/dL Globulin (2.6-4.0) g/dL Albumin/Globulin Ratio (0.9-1.6) SARS-CoV-2 RNA (MARIVEL) (NEGATIVE) Meds: Medications Generic Name Dose Route Start Last Admin Trade Name Freq PRN Reason Stop Dose Admin Dextrose/Water 50 ml 05/05/21 20:10 50% Dextrose In Water 50 Ml Syringe IVPUSH ASDIRECTED PRN Hypoglycemia Glucagon 1 mg 05/05/21 20:10 Glucagon,Human Recombinant 1 Mg Vial IM ASDIRECTED PRN Hypoglycemia Azithromycin 500 mg/ Sodium 250 mls @ 250 mls/hr 05/05/21 20:00 05/05/21 21:25 Chloride IV 250 mls/hr ONETIME SHRUTHI Administration Sodium Chloride 10 ml 05/05/21 19:11 05/05/21 20:32 Sodium Chloride 0.9% 10 Ml Syringe FLUSH 10 ml ASDIRECTED PRN Administration Keep Vein Open Sodium Chloride 2.5 ml 05/05/21 19:11 05/05/21 20:32 Sodium Chloride 0.9% 2.5 Ml Syringe FLUSH 2.5 ml ASDIRECTED PRN Administration Keep Vein Open Sodium Chloride 10 ml 05/05/21 19:52 05/05/21 20:32 Sodium Chloride 0.9% 10 Ml Syringe FLUSH 10 ml ASDIRECTED PRN Administration Keep Vein Open Sodium Chloride 2.5 ml 05/05/21 19:52 05/05/21 20:33 Sodium Chloride 0.9% 2.5 Ml Syringe FLUSH 2.5 ml ASDIRECTED PRN Administration Keep Vein Open Discontinued Medications Generic Name Dose Route Start Last Admin Trade Name Donalq PRN Reason Stop Dose Admin Albuterol Confirm 05/05/21 19:17 05/05/21 20:26 Albuterol 8 Gm Inhaler Administered 05/05/21 19:18 Not Given Dose 8 gm INH .STK-MED ONE Dextrose/Water 50 ml 05/05/21 20:10 05/05/21 20:31 50% Dextrose In Water 50 Ml Syringe IVPUSH 05/05/21 20:11 50 ml ONETIME ONE Administration Furosemide 40 mg 05/05/21 20:26 05/05/21 20:32 Furosemide 40 Mg/4 Ml Vial IVPUSH 05/05/21 20:27 40 mg NOW ONE Administration Ceftriaxone Sodium 1 gm/ 100 mls @ 200 mls/hr 05/05/21 19:52 05/05/21 20:36 Sodium Chloride IV 05/05/21 20:21 Not Given STAT ONE Ceftriaxone Sodium/Dextrose 1 50 mls @ 100 mls/hr 05/05/21 20:23 05/05/21 20:31 gm/ Premix IV 05/05/21 20:52 100 mls/hr ONETIME ONE Administration Ceftriaxone Sodium/Dextrose Confirm 05/05/21 20:22 05/05/21 20:28 Rocephin In Dextrose,Iso-Osm 1 Gm/50 Ml Administered 05/05/21 20:23 Not Given Dose 50 mls @ as directed .ROUTE .STK-MED ONE Insulin Human Regular 10 unit 05/05/21 20:10 05/05/21 20:30 Insulin Regular, Human 100 Units/Ml 10 Ml Vial IVPUSH 05/05/21 20:11 10 units ONETIME ONE Administration Protocol Methylprednisolone Sodium Succinate 125 mg 05/05/21 19:12 05/05/21 19:24 Methylprednisolone Sodium Succinate 125 Mg/2 Ml Sdv IVPUSH 05/05/21 19:13 125 mg ONETIME ONE Administration Nitroglycerin 1 gm 05/05/21 20:41 05/05/21 21:54 Nitroglycerin 2% Oint 1 Gm Ud Packet TOP 05/05/21 20:42 Not Given ONETIME ONE Sodium Bicarbonate 50 meq 05/05/21 20:47 05/05/21 21:25 Sodium Bicarbonate 8.4% 50 Meq/50 Ml Syringe IVPUSH 05/05/21 20:48 50 meq ONETIME ONE Administration Vancomycin HCl 1 dose 05/05/21 19:53 Pharmacy To Dose - Vancomycin .XX 05/05/21 19:54 ONETIME ONE Departure - Departure Time of Disposition: 01:52 Disposition: Refer to Observation Condition: Poor Clinical Impression: ESRD (end stage renal disease), Hyperkalemia - Discharge Information *PRESCRIPTION DRUG MONITORING PROGRAM REVIEWED*: Not Applicable *COPY OF PRESCRIPTION DRUG MONITORING REPORT IN PATIENT CHARISSA: Not Applicable Referrals: Raghu Zavala MD [Primary Care Provider] - Critical Care Note - Critical Care Note Total Time (mins): 55 Comments: Patient presents in moderate respiratory distress requiring me to see is caring for other patients and immediately evaluating care for this patient complex decision making and multiple reassessments were required as well. Sepsis Event Note (ED) - Evaluation Sepsis Screening Result: Possible Sepsis Risk - Focused Exam Vital Signs: Vital Signs Temp Pulse Resp BP Pulse Ox 05/06/21 01:00 113 H 140/61 96 05/06/21 00:01 109 H 96 05/05/21 22:03 106 H 20 156/69 H 98 05/05/21 21:00 100 147/71 H 97 05/05/21 20:41 106 H 178/83 H 97 05/05/21 20:11 109 H 195/100 H 91 L 05/05/21 19:58 104 H 187/98 H 89 L 05/05/21 19:41 105 H 20 199/100 H 91 L 05/05/21 19:07 97.0 F 113 H 40 H 203/111 H 78 L - My Orders Last 24 Hours: My Active Orders 05/05/21 19:11 Sodium Chloride 0.9% [Saline Flush] 10 ml FLUSH ASDIRECTED PRN Sodium Chloride 0.9% [Saline Flush] 2.5 ml FLUSH ASDIRECTED PRN Saline Lock Insert [OM.PC] Stat 05/05/21 19:18 CULTURE BLOOD [BC] Stat 05/05/21 19:52 Sodium Chloride 0.9% [Saline Flush] 10 ml FLUSH ASDIRECTED PRN Sodium Chloride 0.9% [Saline Flush] 2.5 ml FLUSH ASDIRECTED PRN Blood Culture x2 Reflex Set [OM.PC] Stat Saline Lock Insert [OM.PC] Stat Severe Sepsis Onset Time [OM.PC] Stat 05/05/21 20:00 Azithromycin [Zithromax] 500 mg Sodium Chloride 0.9% [Normal Saline (AdvBag)] 250 ml IV ONETIME 05/05/21 20:05 CULTURE BLOOD [BC] Stat 05/05/21 20:10 Dextrose 50% in Water 50 ml IVPUSH ASDIRECTED PRN Glucagon,Human Recombinant [GlucaGen] 1 mg IM ASDIRECTED PRN 05/05/21 20:12 Code Status [Resuscitation Status] Stat - Assessment/Plan Last 24 Hours: My Active Orders 05/05/21 19:11 Sodium Chloride 0.9% [Saline Flush] 10 ml FLUSH ASDIRECTED PRN Sodium Chloride 0.9% [Saline Flush] 2.5 ml FLUSH ASDIRECTED PRN Saline Lock Insert [OM.PC] Stat 05/05/21 19:18 CULTURE BLOOD [BC] Stat 05/05/21 19:52 Sodium Chloride 0.9% [Saline Flush] 10 ml FLUSH ASDIRECTED PRN Sodium Chloride 0.9% [Saline Flush] 2.5 ml FLUSH ASDIRECTED PRN Blood Culture x2 Reflex Set [OM.PC] Stat Saline Lock Insert [OM.PC] Stat Severe Sepsis Onset Time [OM.PC] Stat 05/05/21 20:00 Azithromycin [Zithromax] 500 mg Sodium Chloride 0.9% [Normal Saline (AdvBag)] 250 ml IV ONETIME 05/05/21 20:05 CULTURE BLOOD [BC] Stat 05/05/21 20:10 Dextrose 50% in Water 50 ml IVPUSH ASDIRECTED PRN Glucagon,Human Recombinant [GlucaGen] 1 mg IM ASDIRECTED PRN 05/05/21 20:12 Code Status [Resuscitation Status] Stat Assessment:: 76-year-old female with a history of COPD who is DNR/DNI presenting in mild to moderate respiratory distress. No clear signs of heart failure no lower extremity swelling no crackles at the bases. I would favor COPD exacerbation pneumonia is a consideration Covid is a consideration the patient is fully vaccinated. ACS considered but felt less likely EKG troponin pending CBC CMP ch est x-ray and BNP as well. Patient will be given 4 puffs from an albuterol inhaler 125 Solu-Medrol and will be placed on BiPAP. We will continue to monitor closely. Patient was severely hypertensive for EMS flash pulmonary edema considered but again no clear crackles on exam will assess edema on chest x-ray. Hypertension could also be secondary to the respiratory distress and we will continue to monitor that. 1954: X-ray concerning for right-sided pneumonia on my preliminary interpretation. EKG is unremarkable. ABG with metabolic acidosis with a pH of 7.27 I do have concerns for sepsis lactic acid was added as were blood cultures. Patient has a penicillin allergy so will cover initially with ceftriaxone and azithromycin. 2004: Patient's white blood cell count is significantly elevated. I do think a multifocal infectious process is the primary fire truck driver of her condition rather than a CHF exacerbation. Though BNP remains pending. On my reassessment at this time the patient is breathing more comfortably and she reports a subjective significant improvement in her breathing. She confirms to me that she is DNR/DNI but wishes IV antibiotics and all other treatments at this point. 2014: Con't to await LA result, reordered and discussed with nursing. 2029: BNP is significantly elevated and so fluid retention may also be contributing to this clinical picture. A dose of Lasix is been ordered. Patient has had gradually worsening renal function and now has some significant hyper kalemia as well. Will discuss any openness to potential dialysis. If patient would potentially be open to this and would need to consider transfer. 2032: Patient has never been on dialysis. However, they have had extensive conversations with her about it. She would be open to it if necessary. She actually had a left upper extremity fistula that was placed and then intervened on 2 additional times in anticipation of eventual need for dialysis. However, for some reason it did not develop as expected. And she has never actually been on dialysis. Given her significant renal disease the potential need for dialysis, the coincident infection and fluid overload will discuss with hos queta here regarding admission versus transfer. Patient continues to make urine well and so she may respond to the Lasix. 2051: LA is normal. On additional chart review the patient has seen oncology in the past for leukocytosis and thrombocytosis. 29 is high for this patient but she has been in the 20s before. Pt discussed with Dr. Montanez who requested consultation with a malt house loader to see what their thoughts were on potential need for dialysis and therefore transfer. Patient was discussed with Dr. Cortes at [facility] in [place]. She feels that the patient should be transferred to a facility where inpatient dialysis is possible. Unfortunately they cannot currently do that at [facility] in [place]. Will reach out to other facilities. 0151: The patient has now spoken to her daughter and myself at length and she is opted not to pursue dialysis. This is actually more consistent with her wishes in the past as she has been adamant about not wanting dialysis over the last few years. Patient and her daughter understand that the natural course of this illness is to somewhat rapidly and that any medications we give at this time would be temporizing only. They both understand this. Patient was discussed in full with Dr. Montanez and we will refer to observation on telemetry for now with plan for additional discussions regarding hospice and goals of care tomorrow morning.
[2021-05-05] MEDS: Sodium Chloride 0.9% 10 ML Syringe FLUSH PRN ×2 (19:24→20:32)
[2021-05-05] MEDS: Sodium Chloride 0.9% 2.5 ML Syringe FLUSH PRN ×2 (19:25→20:32)
[2021-05-05 19:51] LABS: BLOOD UREA NITROGEN,BUN 94 mg/dL (7.0-18.0); CARBON DIOXIDE,CO2 21.5 mmol/L (21.0-32.0); CHLORIDE,CL 99 mmol/L (98-107); GLUCOSE RANDOM 155 mg/dL (74-106); POTASSIUM,K 6.2 mmol/L (3.5-5.1); SODIUM,NA 135 mmol/L (136-145)
[2021-05-05] MEDS ORDERED: cefTRIAXone 1 GM in Sodium Chloride 0.9% 100 ML IV ONE (19:52)
[2021-05-05] MEDS ORDERED: Sodium Chloride 0.9% 2.5 ML Syringe FLUSH PRN (19:52)
[2021-05-05] MEDS ORDERED: Sodium Chloride 0.9% 10 ML Syringe FLUSH PRN (19:52)
--- NOTE | 2021-05-05 19:55 | CR ---
INDICATION: Short of breath. Cough. TECHNIQUE: Portable upright AP view of the chest. COMPARISON: 03/26/2021. IMPRESSION: Heart size is upper limits of normal to mildly enlarged. Pulmonary vascular congestion pattern is noted, with associated interstitial changes and patchy perihilar airspace opacities, right greater than left. Findings are suggestive of an asymmetric edema pattern. Multifocal infectious process could also have this appearance. Clinically correlate. No appreciable pleural fluid or pneumothorax. Dictated by Kolby Reid MD @ 05/05/2021 7:53:30 PM Dictated by: Kolby Reid MD @ 05/05/2021 19:53:57 (Electronically Signed)
[2021-05-05] MEDS ORDERED: Azithromycin 500 MG in Sodium Chloride 0.9% 250 ML IV SCH (20:00)
[2021-05-05] MEDS ORDERED: Glucagon,Human Recombinant 1 MG Vial IM PRN (20:10)
[2021-05-05] MEDS ORDERED: 50% Dextrose in Water 50 ML Syringe IVPUSH PRN (20:10)
[2021-05-05] MEDS ORDERED: Insulin Regular, Human 100 Units/ML 10 ML Vial IVPUSH ONE (20:10)
[2021-05-05] MEDS ORDERED: 50% Dextrose in Water 50 ML Syringe IVPUSH ONE (20:10)
[2021-05-05] MEDS ORDERED: cefTRIAXone 1 GM in Premix Bag 1 BAG IV ONE (20:23)
[2021-05-05] MEDS ORDERED: Furosemide 40 MG/4 ML VIAL IVPUSH ONE (20:26)
[2021-05-05] MEDS ORDERED: Nitroglycerin 2% Oint 1 GM UD Packet TOP ONE (20:41)
[2021-05-05] MEDS ORDERED: Sodium Bicarbonate 8.4% 50 MEQ/50 ML Syringe IVPUSH ONE (20:47)
[2021-05-05 22:23] LABS: BLOOD UREA NITROGEN,BUN 93 mg/dL (7.0-18.0); CARBON DIOXIDE,CO2 23.2 mmol/L (21.0-32.0); CHLORIDE,CL 100 mmol/L (98-107); GLUCOSE RANDOM 155 mg/dL (74-106); POTASSIUM,K 5.6 mmol/L (3.5-5.1); SODIUM,NA 136 mmol/L (136-145)
[2021-05-06] MEDS ORDERED: Ondansetron 4 MG/2 ML SDV IVPUSH PRN (02:25)
[2021-05-06] MEDS ORDERED: Albuterol/Ipratropium 3.0-0.5 MG/3 ML Neb Soln NEB PRN (02:26)
[2021-05-06 06:34] LABS: CARBON DIOXIDE,CO2 21.1 mmol/L (21.0-32.0); POTASSIUM,K 5.3 mmol/L (3.5-5.1)
[2021-05-06] MEDS: Furosemide 40 MG/4 ML VIAL IVPUSH SCH ×2 (08:31→16:08)
[2021-05-06] MEDS ORDERED: Pantoprazole 40 MG in Sodium Chloride 0.9% 10 ML IV SCH (09:00)
--- NOTE | 2021-05-06 10:10 | PCM.HP.2 ---
H&P History of Present Illness - General Date of Service: 05/06/21 Admit Problem/Dx: Admission Diagnosis/Problem Admission Diagnosis/Problem Hyperkalemia - History of Present Illness Initial Comments - Free Text/Narative: 76-year-old female who reports a history of COPD, chronic kidney disease stage V, hypertension, who is presenting with shortness of breath and cough that she is is worsened over the last 24 hours. For EMS room air oxygenation was in the upper 70s. She arrives on nonrebreather with increased work of breathing. Chest x-ray was done which showed possible fluid overload versus pneumonia, patient's lab came back significant for significantly elevated creatinine as well as potassium. It looks like from previous creatinine value patient's kidney disease is significantly progressed towards end-stage renal disease. Patient was still making minimal amount of urine. Patient had to be started on BiPAP initially for respiratory support eventually was weaned to nasal cannula. Initially during goals of care conversation patient was open to the idea of dialysis. As a result process of transfer were initiated, nephrology at my not recommended patient will need inpatient dialysis also recommended a transfer to a facility which has inpatient dialysis available. Upon waking further calls no hospital bed is available, hospitalist team was contacted to admit the patient until bed is available. When I went to interview the patient she was not sure if she would want to go for dialysis and wanted to talk to her family specifically her daughter to discuss goals of care. I expressed patient's change of wishes to the ER physician who subsequently had a very thorough conversation with patient's daughter and eventually it was decided that patient would not want to go for any extreme intervention including dialysis, she would prefer to be transition to palliative care, comfort care, home hospice. Patient was admitted for further management. Patient received IV Lasix and was able to make some urine, subsequent labs showed minimal improvement in creatinine and patient's potassium will improve as well after temporizing measures and Lasix administration. This morning I had in person conversation with patient's daughter who was at bedside as well as patient for reconfirmed wishes of being on hospice. Hospice was consulted and they were able to talk to the patient as well as the daughter to set up home hospice. Patient expressed that she would like to be discharged. Eventually arrangements were made to discharge patient with home hospice and home oxygen for comfort as well as oral antibiotics to cover for possible pneumonia. 0 Pain Score (Numeric/FACES): 0 - Related Data Allergies/Adverse Reactions: Allergies Allergy/AdvReac Type Severity Reaction Status Date / Time Latex, Natural Rubber Allergy Itching Verified 05/05/21 19:14 oxycodone Allergy Itching Verified 05/05/21 19:14 Penicillins Allergy Itching Verified 05/05/21 19:14 Sulfa (Sulfonamide Allergy Itching Verified 05/05/21 19:14 Antibiotics) Tetanus Vaccines and Toxoid Allergy Other Verified 05/05/21 19:14 [Tetanus Vaccines & Toxoid] Home Medications: Home Meds Aspirin 81 mg PO DAILY 03/26/21 [History] Clopidogrel Bisulfate [Plavix] 75 mg PO DAILY 03/26/21 [History] Furosemide [Lasix] 40 mg PO DAILY 03/26/21 [History] Acetaminophen [Tylenol] 1 tab PO Q4HR PRN 05/06/21 [History] Candesartan [Atacand] 8 mg PO DAILY 05/06/21 [History] Levofloxacin [Levaquin] 500 mg PO Q48H #3 tablet 05/06/21 [Rx] Metoprolol Tartrate 50 mg PO BID 05/06/21 [History] cilostazoL [Cilostazol] 1 tab PO BID 05/06/21 [History] Past Medical History Cardiovascular History: Reports: Hypertension Respiratory History: Reports: COPD Genitourinary History: Reports: Acute Renal Failure Other Genitourinary History: Supposed to start dialysis. has a fistula placed to the left arm. Other Musculoskeletal History: left arm Psychiatric History: Reports: None Other Hematologic History: takes PO B12 daily and. Vit D Oncologic (Cancer) History: Reports: Leukemia Other Oncologic History: right ovary removed. Other Dermatologic History: states has been itching badlly for 2 to 3 weeks. - Infectious Disease History Infectious Disease History: Reports: Chicken Pox, Measles, Mumps - Past Surgical History Female Surgical History: Reports: Hysterectomy Social & Family History - Family History Family Medical History: No Pertinent Family History - Tobacco Use Tobacco Use Status *Q: Former Tobacco User Used Tobacco, but Quit: Yes Month/Year Tobacco Last Used: 11/12/2020 Second Hand Smoke Exposure: No - Caffeine Use Caffeine Use: Reports: Coffee, Tea - Recreational Drug Use Recreational Drug Use: No H&P Review of Systems - Review of Systems: Review Of Systems: See Below General: Denies: Fever, Chills, Malaise HEENT: Denies: Sinus Congestion Pulmonary: Reports: Shortness of Breath, Cough. Denies: Wheezing Cardiovascular: Reports: Dyspnea on Exertion. Denies: Chest Pain, Palpitations Gastrointestinal: Denies: Abdominal Pain, Anorexia Genitourinary: Denies: Dysuria, Frequency, Burning Musculoskeletal: Denies: Neck Pain, Shoulder Pain, Arm Pain Skin: Denies: Cyanosis, Mottled, Change in Color Psychiatric: Denies: Confusion, Depression, Mood Lability Neurological: Denies: Confusion, Dizziness, Headache Exam - Exam Exam: See Below - Vital Signs Vital Signs: Last Vital Signs Temp 36.5 C 05/06/21 08:00 Pulse 110 H 05/06/21 08:00 Resp 18 05/06/21 08:00 BP 133/68 05/06/21 08:00 Pulse Ox 94 L 05/06/21 08:00 Weight: 49.895 kg - Exam Quality Assessment: Supplemental Oxygen Neck: Supple, Trachea Midline Lungs: Normal Respiratory Effort, Decreased Breath Sounds, Crackles Cardiovascular: Regular Rate, Regular Rhythm GI/Abdominal Exam: Normal Bowel Sounds, Soft, Non-Tender - Patient Data Lab Results Last 24 hrs: Laboratory Results - last 24 hr 05/05/21 05/05/21 05/05/21 Range/Units 19:18 19:18 19:18 WBC 29.78 H (4.0-11.0) K/uL RBC 3.37 L (4.30-5.90) M/uL Hgb 10.5 L (12.0-16.0) g/dL Hct 33.2 L (36.0-46.0) % MCV 98.5 H (80.0-98.0) fL MCH 31.2 (27.0-32.0) pg MCHC 31.6 (31.0-37.0) g/dL RDW Std Deviation 54.9 (28.0-62.0) fl RDW Coeff of Garret 15 (11.0-15.0) % Plt Count 1181 H (150-400) K/uL MPV 10.20 (7.40-12.00) fL Neut % (Auto) 76.8 (48.0-80.0) % Lymph % (Auto) 12.2 L (16.0-40.0) % Stanton % (Auto) 6.9 (0.0-15.0) % Eos % (Auto) 3.5 (0.0-7.0) % Baso % (Auto) 0.6 (0.0-1.5) % Neut # (Auto) 22.9 H (1.4-5.7) K/uL Lymph # (Auto) 3.6 H (0.6-2.4) K/uL Stanton # (Auto) 2.0 H (0.0-0.8) K/uL Eos # (Auto) 1.1 H (0.0-0.7) K/uL Baso # (Auto) 0.2 H (0.0-0.1) K/uL Nucleated RBC % 0.0 /100WBC Nucleated RBCs # 0 K/uL ABG pH (7.35-7.45) ABG pCO2 (35-45) mmHG ABG pO2 (80-105) mmHG ABG HCO3 (22-26) mEq/L ABG Total CO2 (23-27) mmol/L ABG Base Excess (-2.0-3.0) Sodium 135 L (136-145) mmol/L Potassium 6.2 H (3.5-5.1) mmol/L Chloride 99 (98-107) mmol/L Carbon Dioxide 21.5 (21.0-32.0) mmol/L BUN 94 H (7.0-18.0) mg/dL Creatinine 6.6 H (0.6-1.0) mg/dL Est Cr Clr Drug Dosing TNP Estimated GFR (MDRD) 6.1 ml/min Glucose 155 H (74-106) mg/dL Lactic Acid (0.4-2.0) mmol/L Calcium 8.6 (8.5-10.1) mg/dL Phosphorus (2.6-4.7) mg/dL Magnesium (1.8-2.4) mg/dL Total Bilirubin 0.3 (0.2-1.0) mg/dL AST 15 (15-37) IU/L ALT 13 L (14-63) IU/L Alkaline Phosphatase 131 H (46-116) U/L Troponin I < 0.050 (0.000-0.056) ng/mL B-Natriuretic Peptide 889 H (<100) PG/ML Total Protein 7.0 (6.4-8.2) g/dL Albumin 3.2 L (3.4-5.0) g/dL Globulin 3.8 (2.6-4.0) g/dL Albumin/Globulin Ratio 0.8 L (0.9-1.6) SARS-CoV-2 RNA (MARIVEL) (NEGATIVE) 05/05/21 05/05/21 05/05/21 Range/Units 19:18 19:25 19:30 WBC (4.0-11.0) K/uL RBC (4.30-5.90) M/uL Hgb (12.0-16.0) g/dL Hct (36.0-46.0) % MCV (80.0-98.0) fL MCH (27.0-32.0) pg MCHC (31.0-37.0) g/dL RDW Std Deviation (28.0-62.0) fl RDW Coeff of Agrret (11.0-15.0) % Plt Count (150-400) K/uL MPV (7.40-12.00) fL Neut % (Auto) (48.0-80.0) % Lymph % (Auto) (16.0-40.0) % Stanton % (Auto) (0.0-15.0) % Eos % (Auto) (0.0-7.0) % Baso % (Auto) (0.0-1.5) % Neut # (Auto) (1.4-5.7) K/uL Lymph # (Auto) (0.6-2.4) K/uL Stanton # (Auto) (0.0-0.8) K/uL Eos # (Auto) (0.0-0.7) K/uL Baso # (Auto) (0.0-0.1) K/uL Nucleated RBC % /100WBC Nucleated RBCs # K/uL ABG pH 7.27 L (7.35-7.45) ABG pCO2 43 (35-45) mmHG ABG pO2 47 L (80-105) mmHG ABG HCO3 20 L (22-26) mEq/L ABG Total CO2 21 L (23-27) mmol/L ABG Base Excess -7.0 L (-2.0-3.0) Sodium (136-145) mmol/L Potassium (3.5-5.1) mmol/L Chloride (98-107) mmol/L Carbon Dioxide (21.0-32.0) mmol/L BUN (7.0-18.0) mg/dL Creatinine (0.6-1.0) mg/dL Est Cr Clr Drug Dosing Estimated GFR (MDRD) ml/min Glucose (74-106) mg/dL Lactic Acid 1.2 (0.4-2.0) mmol/L Calcium (8.5-10.1) mg/dL Phosphorus (2.6-4.7) mg/dL Magnesium (1.8-2.4) mg/dL Total Bilirubin (0.2-1.0) mg/dL AST (15-37) IU/L ALT (14-63) IU/L Alkaline Phosphatase (46-116) U/L Troponin I (0.000-0.056) ng/mL B-Natriuretic Peptide (<100) PG/ML Total Protein (6.4-8.2) g/dL Albumin (3.4-5.0) g/dL Globulin (2.6-4.0) g/dL Albumin/Globulin Ratio (0.9-1.6) SARS-CoV-2 RNA (MARIVEL) NEGATIVE (NEGATIVE) 05/05/21 05/06/21 05/06/21 Range/Units 21:47 04:40 04:40 WBC 22.39 H (4.0-11.0) K/uL RBC 3.01 L (4.30-5.90) M/uL Hgb 9.5 L (12.0-16.0) g/dL Hct 29.3 L (36.0-46.0) % MCV 97.3 (80.0-98.0) fL MCH 31.6 (27.0-32.0) pg MCHC 32.4 (31.0-37.0) g/dL RDW Std Deviation 53.5 (28.0-62.0) fl RDW Coeff of Garret 15 (11.0-15.0) % Plt Count 923 H (150-400) K/uL MPV 10.10 (7.40-12.00) fL Neut % (Auto) 96.1 H (48.0-80.0) % Lymph % (Auto) 3.1 L (16.0-40.0) % Stanton % (Auto) 0.7 (0.0-15.0) % Eos % (Auto) 0.0 (0.0-7.0) % Baso % (Auto) 0.1 (0.0-1.5) % Neut # (Auto) 21.5 H (1.4-5.7) K/uL Lymph # (Auto) 0.7 (0.6-2.4) K/uL Stanton # (Auto) 0.2 (0.0-0.8) K/uL Eos # (Auto) 0.0 (0.0-0.7) K/uL Baso # (Auto) 0.0 (0.0-0.1) K/uL Nucleated RBC % 0.0 /100WBC Nucleated RBCs # 0 K/uL ABG pH (7.35-7.45) ABG pCO2 (35-45) mmHG ABG pO2 (80-105) mmHG ABG HCO3 (22-26) mEq/L ABG Total CO2 (23-27) mmol/L ABG Base Excess (-2.0-3.0) Sodium 136 136 (136-145) mmol/L Potassium 5.6 H 5.3 H (3.5-5.1) mmol/L Chloride 100 99 (98-107) mmol/L Carbon Dioxide 23.2 21.1 (21.0-32.0) mmol/L BUN 93 H 93 H (7.0-18.0) mg/dL Creatinine 6.5 H 6.4 H (0.6-1.0) mg/dL Est Cr Clr Drug Dosing TNP 5.71 Estimated GFR (MDRD) 6.2 6.3 ml/min Glucose 155 H 153 H (74-106) mg/dL Lactic Acid (0.4-2.0) mmol/L Calcium 8.2 L 8.2 L (8.5-10.1) mg/dL Phosphorus 8.9 H (2.6-4.7) mg/dL Magnesium 2.5 H (1.8-2.4) mg/dL Total Bilirubin (0.2-1.0) mg/dL AST (15-37) IU/L ALT (14-63) IU/L Alkaline Phosphatase (46-116) U/L Troponin I (0.000-0.056) ng/mL B-Natriuretic Peptide (<100) PG/ML Total Protein (6.4-8.2) g/dL Albumin (3.4-5.0) g/dL Globulin (2.6-4.0) g/dL Albumin/Globulin Ratio (0.9-1.6) SARS-CoV-2 RNA (MARIVEL) (NEGATIVE) Result Diagrams: 05/06/21 04:40 05/06/21 04:40 Sepsis Event Note - Evaluation Sepsis Screening Result: Severe Sepsis Risk - Focused Exam Vital Signs: Vital Signs Temp Pulse Resp BP Pulse Ox 05/06/21 08:00 36.5 C 110 H 18 133/68 94 L 05/06/21 06:22 93 L 05/06/21 02:22 36.4 C 22 H 167/68 H 94 L 05/06/21 01:00 113 H 140/61 96 05/06/21 00:01 109 H 96 - Problem List (1) Palliative care status SNOMED Code(s): 073975828 ICD Code: Z51.5 - ENCOUNTER FOR PALLIATIVE CARE Status: Acute (2) Chronic renal failure SNOMED Code(s): 29324067 ICD Code: N18.9 - CHRONIC KIDNEY DISEASE, UNSPECIFIED Status: Acute Qualifiers: Chronic kidney disease stage: unspecified stage Qualified Code(s): N18.9 - Chronic kidney disease, unspecified (3) ESRD (end stage renal disease) SNOMED Code(s): 43204583 ICD Code: N18.6 - END STAGE RENAL DISEASE Status: Acute (4) Hyperkalemia SNOMED Code(s): 09127867 ICD Code: E87.5 - HYPERKALEMIA Status: Acute (5) Hypertension SNOMED Code(s): 65714635 ICD Code: I10 - ESSENTIAL (PRIMARY) HYPERTENSION Status: Acute (6) Leukocytosis SNOMED Code(s): 446173455, 232603860 ICD Code: D72.829 - ELEVATED WHITE BLOOD CELL COUNT, UNSPECIFIED Status: Acute Qualifiers: Leukocytosis type: other Qualified Code(s): D72.828 - Other elevated white blood cell count (7) Hospice care Status: Acute Problem List Initiated/Reviewed/Updated: Yes Orders Last 24hrs: Active Orders 24 hr Category Date Time Status Patient Status [ADT] Routine ADT 05/06/21 01:53 Active Ambulate [RC] ASDIRECTED Care 05/06/21 02:24 Active Antiembolic Devices [RC] PER UNIT ROUTINE Care 05/06/21 02:24 Active Insert Chappell Catheter [Insert Urinary Catheter] [OM.PC] Care 05/06/21 02:45 Ordered Q24H Oxygen Therapy Adult [Oxygen Therapy] [RC] ASDIRECTED Care 05/06/21 02:22 Active RT Aerosol Therapy [RC] ASDIRECTED Care 05/06/21 02:27 Active Telemetry Monitoring [Cardiac Monitoring] [RC] Q8H Care 05/06/21 02:31 Active Urinary Catheter Assessment [RC] ASDIRECTED Care 05/06/21 02:35 Active Vital Signs [RC] Q4H Care 05/06/21 02:22 Active Consult to Hospice [CONS] Routine Cons 05/06/21 02:33 Active Renal Non-Dialysis Diet [DIET] Diet 05/06/21 Breakfast Active CULTURE BLOOD [BC] Stat Lab 05/05/21 19:18 Received CULTURE BLOOD [BC] Stat Lab 05/05/21 20:05 Received Albuterol/Ipratropium [DuoNeb 3.0-0.5 MG/3 ML] Med 05/06/21 02:26 Active 3 ml NEB Q4HRRT PRN Azithromycin [Zithromax] 500 mg Med 05/05/21 20:00 Active Sodium Chloride 0.9% [Normal Saline (AdvBag)] 250 ml IV ONETIME Dextrose 50% in Water Med 05/05/21 20:10 Active 50 ml IVPUSH ASDIRECTED PRN Furosemide [Lasix] Med 05/06/21 08:00 Active 40 mg IVPUSH BIDDIURETIC Glucagon,Human Recombinant [GlucaGen] Med 05/05/21 20:10 Active 1 mg IM ASDIRECTED PRN Ondansetron [Zofran] Med 05/06/21 02:25 Active 4 mg IVPUSH Q4H PRN Pantoprazole [ProTONIX IV] 40 mg Med 05/06/21 09:00 Active Sodium Chloride 0.9% [Normal Saline] 10 ml IV DAILY Sodium Chloride 0.9% [Saline Flush] Med 05/05/21 19:11 Active 10 ml FLUSH ASDIRECTED PRN Sodium Chloride 0.9% [Saline Flush] Med 05/05/21 19:52 Active 10 ml FLUSH ASDIRECTED PRN Sodium Chloride 0.9% [Saline Flush] Med 05/05/21 19:11 Active 2.5 ml FLUSH ASDIRECTED PRN Sodium Chloride 0.9% [Saline Flush] Med 05/05/21 19:52 Active 2.5 ml FLUSH ASDIRECTED PRN Blood Culture x2 Reflex Set [OM.PC] Stat Ot 05/05/21 19:52 Ordered SCD [Sequential Compression Device] [OM.PC] Routine Ot 05/06/21 02:24 Ordered Saline Lock Insert [OM.PC] Stat Ot 05/05/21 19:11 Ordered Saline Lock Insert [OM.PC] Stat Ot 05/05/21 19:52 Ordered Severe Sepsis Onset Time [OM.PC] Stat Ot 05/05/21 19:52 Ordered Code Status [Resuscitation Status] Stat Resus Stat 05/05/21 20:12 Ordered Medication Orders Albuterol/Ipratropium (Albuterol/Ipratropium 3.0-0.5 Mg/3 Ml Neb Soln) 3 ml NEB Q4HRRT PRN PRN Reason: Shortness of Breath Dextrose/Water (50% Dextrose In Water 50 Ml Syringe) 50 ml IVPUSH ASDIRECTED PRN PRN Reason: Hypoglycemia Furosemide (Furosemide 40 Mg/4 Ml Vial) 40 mg IVPUSH BIDDIURETIC [facility] Last Admin: 05/06/21 08:31 Dose: 40 mg Documented by: ABEL Glucagon (Glucagon,Human Recombinant 1 Mg Vial) 1 mg IM ASDIRECTED PRN PRN Reason: Hypoglycemia Azithromycin 500 mg/ Sodium (Chloride) 250 mls @ 250 mls/hr IV ONETIME [facility] Last Admin: 05/05/21 21:25 Dose: 250 mls/hr Documented by: WALT Pantoprazole Sodium 40 mg/ (Sodium Chloride) 10 mls @ 300 mls/hr IV DAILY [facility] Last Admin: 05/06/21 08:31 Dose: 300 mls/hr Documented by: ABEL Ondansetron HCl (Ondansetron 4 Mg/2 Ml Sdv) 4 mg IVPUSH Q4H PRN PRN Reason: Nausea/Vomiting Sodium Chloride (Sodium Chloride 0.9% 10 Ml Syringe) 10 ml FLUSH ASDIRECTED PRN PRN Reason: Keep Vein Open Last Admin: 05/05/21 20:32 Dose: 10 ml Documented by: Admin: 05/05/21 19:24 Dose: 10 ml Documented by: HILARIO Sodium Chloride (Sodium Chloride 0.9% 2.5 Ml Syringe) 2.5 ml FLUSH ASDIRECTED PRN PRN Reason: Keep Vein Open Last Admin: 05/05/21 20:32 Dose: 2.5 ml Documented by: Admin: 05/05/21 19:25 Dose: 2.5 ml Documented by: HILARIO Sodium Chloride (Sodium Chloride 0.9% 10 Ml Syringe) 10 ml FLUSH ASDIRECTED PRN PRN Reason: Keep Vein Open Last Admin: 05/05/21 20:32 Dose: 10 ml Documented by: WALT Sodium Chloride (Sodium Chloride 0.9% 2.5 Ml Syringe) 2.5 ml FLUSH ASDIRECTED PRN PRN Reason: Keep Vein Open Last Admin: 05/05/21 20:33 Dose: 2.5 ml Documented by: WALT Assessment/Plan Comment:: 76-year-old female admitted for failure to/hospice measures secondary to ESRD, not planning to undergo dialysis Hospice has been consulted and arrangements have been made for patient to go home with hospice care Will resume meds for comfort and stop other unnecessary medications Patient will be going home on home oxygen for comfort Patient as well as family in agreement with the plan Patient was also sent on oral dose of Levaquin to cover possible underlying pneumonia
[2021-05-06] MEDS ORDERED: Levofloxacin/Dextrose 5%-Water 750 MG in Premix Bag 1 BAG IV SCH (11:45)
[2021-05-06] MEDS ORDERED: Levofloxacin 500 MG Tab PO ONE (13:01)
[2021-05-06 16:09] VITALS: BP 128/64; PULSE 112
[2021-05-08] MEDS ORDERED: Levofloxacin/Dextrose 5%-Water 100 ML IV SCH (12:00)
== END 2021-05-06 15:35 | disposition hospice, home (50) ==
LOC: MW.ED 19:07 → MW.ICU 05-06 01:53
PROVIDERS: ADMIT Student in an Organized Health Care Education/Training Program; ATTEND Student in an Organized Health Care Education/Training Program
DX: E87.5 Hyperkalemia (principal); I12.0 Hypertensive chronic kidney disease with stage 5 chronic kidney disease or end stage renal disease; N18.6 End stage renal disease; J44.9 Chronic obstructive pulmonary disease, unspecified; Z20.822 Contact with and (suspected) exposure to COVID-19; Z91.040 Latex allergy status; Z88.0 Allergy status to penicillin; Z88.2 Allergy status to sulfonamides; Z88.7 Allergy status to serum and vaccine; Z79.82 Long term (current) use of aspirin; Z79.899 Other long term (current) drug therapy; Z87.891 Personal history of nicotine dependence; Z51.5 Encounter for palliative care; I10 Essential (primary) hypertension; D72.828 Other elevated white blood cell count
CPT/HCPCS: 36415; 36600; 71045; 80048; 80053; 82803; 83605; 83735; 83880; 84100; 84484; 85025; 87040; 93005; 94660; 96365; 96375; 96376; 99291; A9270; C9113; G0378; J0456; J0696; J1940; J1956; J2930; J7050; U0002; J1815-GY